=== PATIENT | female | born 1975 | race Caucasian/White ===

== ENCOUNTER 2016-10-03 15:12 | Emergency (ER) | payer BC ==
[~2016-10-03] VITALS: Ht 167.6 cm; Wt 84.1 kg
[2016-10-03 15:33] VITALS: TEMP 36.9; Ht 167.6 cm; Wt 84.1 kg
[2016-10-03 15:41] VITALS: O2SAT 96
[2016-10-03 15:42] LABS: BASO % 0.4 %; BASO ABS # 0.03 K/uL (0-0.2); COMPLETE YES; EOS % 0.7 %; IG% 0.1 %; LYMPH % 31.7 %; LYMPH ABS # 2.18 K/uL (1.2-3.4); MEAN CELL VOLUME 90.9 fL (80-100); MEAN PLATELET VOLUME 10.1 fL (7.4-10.4); NEUT % 61.1 %; PLATELET COUNT 287 K/uL (130-400); RED BLOOD COUNT 4.62 M/uL (4.2-5.4); WHITE BLOOD COUNT 6.87 K/uL (4.8-10.8)
[2016-10-03 15:48] LABS: PARTIAL THROMBOPLASTIN RATIO 1.1; PROTHROMBIN TIME (PATIENT) 10.2 SECONDS (9.0-12.0)
--- NOTE | 2016-10-03 15:59 | DIAGNOSTIC IMAGING REPORT ---
CHEST ONE VIEW PORTABLE CLINICAL HISTORY: Evaluate Fever/Sepsis COMPARISON STUDY: No previous studies for comparison. FINDINGS: The bones soft tissues and hemidiaphragms are normal. The cardiomediastinal silhouette is normal. The lungs are clear. The pulmonary vasculature is normal. IMPRESSION: Negative chest. Electronically signed by: Vinicius French M.D. 10/03/2016 3:58 PM Dictated Date/Time: 10/03/2016 3:57 PM
[2016-10-03 16:14] LABS: URINE APPEARANCE CLEAR (CLEAR); URINE BILIRUBIN NEG (NEG); URINE COLOR YELLOW; URINE NITRITE NEG (NEG); URINE SPECIFIC GRAVITY 1.011 (1.000-1.030); UROBILINOGEN NEG (NEG)
[2016-10-03 16:18] LABS: MANUAL MICROSCOPIC REQUIRED? NO; REVIEW REQ? NO
[2016-10-03 16:44] LABS: SODIUM 140 mmol/L (136-145)
[2016-10-03 16:52] LABS: AST/SGOT 13 U/L (15-37)
[2016-10-03 16:57] LABS: ALKALINE PHOSPHATASE 76 U/L (45-117); ALT/SGPT 18 U/L (12-78); BLOOD UREA NITROGEN 8 mg/dl (7-18); BUN/CREATININE RATIO 9.1 (10-20); CALCIUM 8.6 mg/dl (8.5-10.1); CARBON DIOXIDE 25 mmol/L (21-32); CHLORIDE 108 mmol/L (98-107); CKMB/CK RATIO 0.7 (0-3.0); CREATININE 0.88 mg/dl (0.60-1.20); GLUCOSE 88 mg/dl (70-99)
--- NOTE | 2016-10-03 17:28 | EMERGENCY ROOM VISIT NOTE ---
History Report prepared by Sonia: Yaritza Alonso Under the Supervision of: Dr. Marquez Mitchell D.O. First contact with patient: 15:30 Stated Complaint: ANXIETY History of Present Illness The patient is a 40 year old female who presents to the Emergency Room with complaints of persistent anxiety that began one hour ago. The patient states that she was at work when she started feeling shaky and near syncopal. She states that her whole body went numb, but noticed a burning pressure in her heart. The patient states that she checked her pulse and she was tachycardic and additionally notes that her blood pressure was hypertensive. She states that this happens from time to time. The patient reports a history of a mitral valve prolapse that was diagnosed in [place]. She states that now her head feels "funny." The patient denies any recent cold symptoms. Source of History: patient Onset: 1 hour ago Position: other (global) Quality: other (anxiety) Timing: other (persistent) Associated Symptoms: + numbness (whole body) Note: Associated Symptoms: near syncopal, shakiness, chest tightness and burning, tachycardic, hypertensive Review of Systems See HPI for pertinent positives & negatives. A total of 10 systems reviewed and were otherwise negative. Past Medical & Surgical Medical Problems: (1) Mitral valve prolapse Family History No pertinent family history stated. Social History Marital Status: Housing Status: lives with significant other Occupation Status: employed Current/Historical Medications No Active Prescriptions or Reported Meds Allergies Coded Allergies: No Known Allergies (Unverified , 10/03/16) Physical Exam Vital Signs Date Time Temp Pulse Resp B/P (MAP) Pulse Ox O2 Delivery O2 Flow Rate FiO2 10/03/16 15:41 96 Room Air 10/03/16 15:33 36.9 79 18 147/92 96 Room Air 10/03/16 15:28 79 Physical Exam CONSTITUTIONAL/VITAL SIGNS: Reviewed / noted above. GENERAL: Non-toxic in appearance. INTEGUMENTARY: Warm, dry, and [place]. HEAD: Normocephalic. EYES: without scleral icterus or trauma. ENT/OROPHARYNX: clear and moist. LYMPHADENOPATHY/NECK: Is supple without lymphadenopathy or meningismus. RESPIRATORY: Lungs clear and equal. CARDIOVASCULAR: Regular rate and rhythm. GI/ABDOMEN: Soft and nontender. No organomegaly or pulsatile mass. No rebound or guarding. Normal bowel sounds. EXTREMITIES: Warm and well perfused. BACK: No CVA tenderness. NEUROLOGICAL: Intact without focal deficits. PSYCHIATRIC: normal affect. MUSCULOSKELETAL: Normally developed with good muscle tone. Medical Decision & Procedures ER Provider Diagnostic Interpretation: X ray results and stated below per my interpretation and radiology interpretation. CHEST ONE VIEW PORTABLE CLINICAL HISTORY: Evaluate Fever/Sepsis COMPARISON STUDY: No previous studies for comparison. FINDINGS: The bones soft tissues and hemidiaphragms are normal. The cardiomediastinal silhouette is normal. The lungs are clear. The pulmonary vasculature is normal. IMPRESSION: Negative chest. Electronically signed by: Vinicius French M.D. 10/03/2016 3:58 PM Dictated Date/Time: 10/03/2016 3:57 PM Laboratory Results 10/03/16 15:25 Red Blood Count 4.62, Mean Corpuscular Volume 90.9, Mean Corpuscular Hemoglobin 31.0, Mean Corpuscular Hemoglobin Concent 34.0, Mean Platelet Volume 10.1, Neutrophils (%) (Auto) 61.1, Lymphocytes (%) (Auto) 31.7, Monocytes (%) (Auto) 6.0, Eosinophils (%) (Auto) 0.7, Basophils (%) (Auto) 0.4, Neutrophils # (Auto) 4.19, Lymphocytes # (Auto) 2.18, Monocytes # (Auto) 0.41, Eosinophils # (Auto) 0.05, Basophils # (Auto) 0.03 10/03/16 15:25 Test 10/03/16 15:25 10/03/16 15:55 White Blood Count 6.87 K/uL (4.8-10.8) Red Blood Count 4.62 M/uL (4.2-5.4) Hemoglobin 14.3 g/dL (12.0-16.0) Hematocrit 42.0 % (37-47) Mean Corpuscular Volume 90.9 fL (80-100) Mean Corpuscular Hemoglobin 31.0 pg (25-34) Mean Corpuscular Hemoglobin Concent 34.0 g/dl (32-36) Platelet Count 287 K/uL (130-400) Mean Platelet Volume 10.1 fL (7.4-10.4) Neutrophils (%) (Auto) 61.1 % Lymphocytes (%) (Auto) 31.7 % Monocytes (%) (Auto) 6.0 % Eosinophils (%) (Auto) 0.7 % Basophils (%) (Auto) 0.4 % Neutrophils # (Auto) 4.19 K/uL (1.4-6.5) Lymphocytes # (Auto) 2.18 K/uL (1.2-3.4) Monocytes # (Auto) 0.41 K/uL (0.11-0.59) Eosinophils # (Auto) 0.05 K/uL (0-0.5) Basophils # (Auto) 0.03 K/uL (0-0.2) RDW Standard Deviation 41.9 fL (36.4-46.3) RDW Coefficient of Variation 12.5 % (11.5-14.5) Immature Granulocyte % (Auto) 0.1 % Immature Granulocyte # (Auto) 0.01 K/uL (0.00-0.02) Prothrombin Time 10.2 SECONDS (9.0-12.0) Prothromb Time International Ratio 1.0 (0.9-1.1) Activated Partial Thromboplast Time 28.6 SECONDS (21.0-31.0) Partial Thromboplastin Ratio 1.1 Anion Gap 7.0 mmol/L (3-11) Est Creatinine Clear Calc Drug Dose 91.0 ml/min Estimated GFR () 93.9 Estimated GFR (Non- 81.0 BUN/Creatinine Ratio 9.1 (10-20) Calcium Level 8.6 mg/dl (8.5-10.1) Total Bilirubin 0.4 mg/dl (0.2-1) Direct Bilirubin < 0.1 mg/dl (0-0.2) Aspartate Amino Transf (AST/SGOT) 13 U/L (15-37) Alanine Aminotransferase (ALT/SGPT) 18 U/L (12-78) Alkaline Phosphatase 76 U/L (45-117) Total Creatine Kinase 82 U/L (26-192) Creatine Kinase MB 0.6 ng/ml (0.5-3.6) Creatine Kinase MB Ratio 0.7 (0-3.0) Troponin I < 0.015 ng/ml (0-0.045) Total Protein 7.7 gm/dl (6.4-8.2) Albumin 3.9 gm/dl (3.4-5.0) Lipase 97 U/L (73-393) Thyroid Stimulating Hormone (TSH) 1.030 uIu/ml (0.300-4.500) Urine Color YELLOW Urine Appearance CLEAR (CLEAR) Urine pH 5.0 (4.5-7.5) Urine Specific [place] 1.011 (1.000-1.030) Urine Protein NEG (NEG) Urine Glucose (UA) NEG (NEG) Urine Ketones NEG (NEG) Urine Occult Blood NEG (NEG) Urine Nitrite NEG (NEG) Urine Bilirubin NEG (NEG) Urine Urobilinogen NEG (NEG) Urine Leukocyte Esterase NEG (NEG) Urine Test NEG (NEG) Laboratory results as stated above per my review. ECG Indication: chest pain Rate (beats per minute): 72 Rhythm: normal sinus Findings: no acute ischemic change, no ectopy ED Course 1531: Previous medical records were reviewed. The patient was evaluated in room C4. A complete history and physical examination was performed. 1728: I reevaluated the patient and she is resting comfortably. I discussed the exam findings with her and I discussed the treatment plan. She verbalized complete understanding and agreement. She is ready to go home. Medical Decision Differentials considered include acute myocardial infarction, acute coronary syndrome, myocarditis, pericarditis, pericardial effusions /tamponade, esophageal perforation, thoracic aortic dissection, pulmonary embolism, pneumonia, pneumothorax, pancreatitis, shingles, acute cholecystitis, and perforated abdominal viscus. Patient was found to have a slightly elevated blood pressure due to circumstances. I do not believe that the patient requires hypertension monitoring. Medication Reconciliation: I attest that I have personally reviewed the patient' s current medication list. This is a 40-year-old female who presents to the ED with a chief complaint of numbness throughout her whole body and a warm sensation and pressure over her heart. She states that this occurred around 2:30 PM. She states that her heart was racing around the 117 bpm and her blood pressure was 150. The patient has no other significant complaints. She denies shortness of breath or fevers or recent illness. Vital signs are stable. She is mildly hypertensive. EKG shows a normal sinus rhythm at a rate of 72. CBC is normal, complete metabolic panel is normal, troponin is negative, TSH is normal, urine did not show infection and she is not . The patient was told the results of the test. She is felt to be stable for discharge. Impression Primary Impression: Paresthesias Additional Impression: Precordial chest pain Scribe Attestation The scribe's documentation has been prepared under my direction and personally reviewed by me in its entirety. I confirm that the note above accurately reflects all work, treatment, procedures, and medical decision making performed by me. Departure Information Dispostion Home / Self-Care Prescriptions No Active Prescriptions or Reported Meds Referrals Harman Sarmiento M.D. (PCP) Forms IMPORTANT VISIT INFORMATION Patient Instructions My [facility] Additional Instructions Follow-up with your doctor for further care and evaluation in 1-2 days if symptoms persist. Return to the emergency department for worsening or new symptoms or any concerns. You have been examined and treated today on an emergency basis only. This is not a substitute for, or an effort to provide, complete comprehensive medical care. It is impossible to recognize and treat all injuries or illnesses in a single emergency department visit. It is therefore important that you follow up closely with your doctor. Call as soon as possible for an appointment. Problem Qualifiers
[2016-10-03 17:48] VITALS: BP 129/82; PULSE 65; O2SAT 98
== END 2016-10-03 17:49 | disposition home or self-care (01) ==
LOC: EDBD 15:12 → C.EDC 15:13
DX: R20.9 Unspecified disturbances of skin sensation (principal); R07.2 Precordial pain; I34.1 Nonrheumatic mitral (valve) prolapse

== ENCOUNTER 2017-10-29 15:40 | Emergency (ER) | payer BC ==
[~2017-10-29] VITALS: Ht 170.2 cm; Wt 84.5 kg
[2017-10-29 15:40] VITALS: TEMP 36.4; Ht 170.2 cm; Wt 84.5 kg
--- NOTE | 2017-10-29 15:55 | EMERGENCY ROOM VISIT NOTE ---
History Report prepared by Sonia: Patrick Mooney Under the Supervision of: Dr. Navya Foster D.O. First contact with patient: 15:41 Chief Complaint: SYNCOPE (NEAR SYNCOPE) Stated Complaint: NEAR SYNCOPE History of Present Illness The patient is a 41 year old female who presents to the Emergency Room with complaints of constant dizziness beginning this morning. The patient states that she has been feeling weak and nauseous for the entire day today. She notes that she has been feeling so dizzy that she feels as though she is going to pass out. She reports that she feels as though she has to crawl when she walks because she feels so weak. She also complains of vomiting, abdominal pain, chills, and head pressure. She states that she has been persistently vomiting all day. The patient notes that she had an episode of sharp abdominal pain last night but she reports that she is not have any current pain. She denies any fever and changes in her bowel movements/urine. She reports that she had an entire bag of salted sunflower seeds and a few slices of [place] cream pie last night for dinner. The patient states that she has had similar symptoms in the past that she believes might be caused by her gallbladder. Per EMS, the patient' s blood pressure was in the 160s en route to the emergency department today. EMS notes that the patient received four Zofran en route to the emergency department. Source of History: patient Onset: this morning Position: head Quality: other (dizziness) Timing: constant Associated Symptoms: + chills, + nausea, + vomiting, + abdominal pain, + weakness, No fevers Note: The patient also complains of head pressure. She denies any changes in her bowel movements/urine. Review of Systems See HPI for pertinent positives & negatives. A total of 10 systems reviewed and were otherwise negative. Past Medical & Surgical Medical Problems: (1) Mitral valve prolapse Family History No pertinent family history stated. Social History Smoking Status: Never Smoker Marital Status: Housing Status: lives with family Occupation Status: employed Current/Historical Medications Scheduled Aspirin (Aspirin), 650 MG PO DAILY Charcoal (Charcoal), 5 TAB PO ONCE Allergies Coded Allergies: No Known Allergies (Unverified , 10/29/17) Physical Exam Vital Signs Date Time Temp Pulse Resp B/P (MAP) Pulse Ox O2 Delivery O2 Flow Rate FiO2 10/29/17 20:23 72 18 121/79 98 10/29/17 19:28 82 17 138/85 99 Room Air 10/29/17 17:30 78 18 119/83 98 Room Air 10/29/17 15:48 73 10/29/17 15:40 36.4 74 20 143/100 96 Room Air Physical Exam GENERAL: alert, well appearing, well nourished, no distress, non-toxic EYE EXAM: normal conjunctiva, PERRL and EOM's grossly intact OROPHARYNX: no exudate, no erythema, lips, buccal mucosa, and tongue normal and mucous membranes are moist NECK: supple, no nuchal rigidity, no adenopathy, non-tender LUNGS: Clear to auscultation. Normal chest wall mechanics HEART: no murmurs, S1 normal and S2 normal ABDOMEN: abdomen soft, non-tender, normo-active bowel sounds, no masses, no rebound or guarding. No reproducible abdominal pain. BACK: Back is symmetrical on inspection and there is no deformity, no midline tenderness, no CVA tenderness. SKIN: no rashes and no bruising UPPER EXTREMITIES: upper extremities are grossly normal. LOWER EXTREMITIES: No pitting edema. NEURO EXAM: Normal sensorium, cranial nerves II-XII grossly intact, normal speech, no gross weakness of arms, no gross weakness of legs. Medical Decision & Procedures ER Provider Diagnostic Interpretation: Radiology results have been interpreted by the radiologist and reviewed by me. GALLBLADDER-ABD LIMITED FINDINGS: Visualized pancreas appears unremarkable. The liver is within normal limits without focal mass or intrahepatic biliary ductal dilation. Gallbladder is within normal limits without wall thickening, shadowing cholelithiasis or pericholecystic fluid. Common bile duct is normal, 3 mm. 4 mm and shadowing echogenicity of the interpolar right kidney is noted. No right-sided hydronephrosis or shadowing calculi. IMPRESSION: 1. No cholelithiasis or sonographic evidence of acute cholecystitis. 2. No biliary ductal dilation. 3. 4 mm echogenic lesion of the interpolar right kidney may reflect an angiomyolipoma The above report was generated using voice recognition software. It may contain grammatical, syntax or spelling errors. Electronically signed by: Jeffrey Scott M.D. 10/29/2017 5:42 PM Dictated Date/Time: 10/29/2017 5:19 PM ABDOMEN 2VIEW W/PA CHEST RTN FINDINGS: Cardiomediastinal and hilar silhouettes are within normal limits. No pneumothorax, pleural effusion, focal airspace consolidation or overt pulmonary edema. The bones of the chest appear grossly intact. No pneumatosis or pneumoperitoneum. Bowel gas pattern is nonobstructive. No urolith or organomegaly. Phleboliths of the pelvis. Mild to moderate formed stool about the right hemicolon. IMPRESSION: 1. No acute processes of the chest. 2. Nonobstructive bowel gas pattern without pneumoperitoneum. The above report was generated using voice recognition software. It may contain grammatical, syntax or spelling errors. Electronically signed by: Jeffrey Scott M.D. 10/29/2017 5:56 PM Dictated Date/Time: 10/29/2017 5:54 PM Laboratory Results 10/29/17 15:40 Red Blood Count 4.75, Mean Corpuscular Volume 91.4, Mean Corpuscular Hemoglobin 30.7, Mean Corpuscular Hemoglobin Concent 33.6, Mean Platelet Volume 10.9, Neutrophils (%) (Auto) 82.9, Lymphocytes (%) (Auto) 12.1, Monocytes (%) (Auto) 4.3, Eosinophils (%) (Auto) 0.2, Basophils (%) (Auto) 0.3, Neutrophils # (Auto) 9.61, Lymphocytes # (Auto) 1.40, Monocytes # (Auto) 0.50, Eosinophils # (Auto) 0.02, Basophils # (Auto) 0.03 10/29/17 15:40 Test 10/29/17 15:40 10/29/17 16:45 White Blood Count 11.58 K/uL (4.8-10.8) Red Blood Count 4.75 M/uL (4.2-5.4) Hemoglobin 14.6 g/dL (12.0-16.0) Hematocrit 43.4 % (37-47) Mean Corpuscular Volume 91.4 fL (80-100) Mean Corpuscular Hemoglobin 30.7 pg (25-34) Mean Corpuscular Hemoglobin Concent 33.6 g/dl (32-36) Platelet Count 277 K/uL (130-400) Mean Platelet Volume 10.9 fL (7.4-10.4) Neutrophils (%) (Auto) 82.9 % Lymphocytes (%) (Auto) 12.1 % Monocytes (%) (Auto) 4.3 % Eosinophils (%) (Auto) 0.2 % Basophils (%) (Auto) 0.3 % Neutrophils # (Auto) 9.61 K/uL (1.4-6.5) Lymphocytes # (Auto) 1.40 K/uL (1.2-3.4) Monocytes # (Auto) 0.50 K/uL (0.11-0.59) Eosinophils # (Auto) 0.02 K/uL (0-0.5) Basophils # (Auto) 0.03 K/uL (0-0.2) RDW Standard Deviation 41.6 fL (36.4-46.3) RDW Coefficient of Variation 12.4 % (11.5-14.5) Immature Granulocyte % (Auto) 0.2 % Immature Granulocyte # (Auto) 0.02 K/uL (0.00-0.02) Anion Gap 7.0 mmol/L (3-11) Est Creatinine Clear Calc Drug Dose 96.5 ml/min Estimated GFR () 98.7 Estimated GFR (Non- 85.1 BUN/Creatinine Ratio 10.8 (10-20) Calcium Level 8.3 mg/dl (8.5-10.1) Total Bilirubin 0.4 mg/dl (0.2-1) Aspartate Amino Transf (AST/SGOT) 16 U/L (15-37) Alanine Aminotransferase (ALT/SGPT) 19 U/L (12-78) Alkaline Phosphatase 78 U/L (45-117) Troponin I < 0.015 ng/ml (0-0.045) Total Protein 8.5 gm/dl (6.4-8.2) Albumin 4.3 gm/dl (3.4-5.0) Globulin 4.2 gm/dl (2.5-4.0) Albumin/Globulin Ratio 1.0 (0.9-2) Lipase 99 U/L (73-393) Urine Color YELLOW Urine Appearance CLEAR (CLEAR) Urine pH 7.5 (4.5-7.5) Urine Specific [place] 1.010 (1.000-1.030) Urine Protein NEG (NEG) Urine Glucose (UA) NEG (NEG) Urine Ketones NEG (NEG) Urine Occult Blood NEG (NEG) Urine Nitrite NEG (NEG) Urine Bilirubin NEG (NEG) Urine Urobilinogen NEG (NEG) Urine Leukocyte Esterase NEG (NEG) Laboratory results per my review. Medications Administered Medications (Trade) Dose Ordered Sig/Giacomo Route Start Time Stop Time Status Last Admin Dose Admin Sodium Chloride 1,000 ml @ 999 mls/hr Q1H1M STAT IV 10/29/17 16:19 10/29/17 17:19 DC 10/29/17 16:35 999 MLS/HR Famotidine (Pepcid 20mg Iv Push) 20 mg ONE STAT IV 10/29/17 16:19 10/29/17 16:22 DC 10/29/17 16:36 20 MG Ondansetron HCl (Zofran Inj) 4 mg NOW STAT IV 10/29/17 18:45 10/29/17 18:46 DC 10/29/17 18:57 4 MG Ketorolac Tromethamine (Toradol Inj) 30 mg NOW STAT IV 10/29/17 18:45 10/29/17 18:46 DC 10/29/17 18:57 30 MG Ondansetron HCl (ZOFRAN ODT 4MG Home Pack) 1 homepack UD ONCE PO 10/29/17 20:15 10/29/17 20:16 DC 10/29/17 20:23 1 HOMEPACK ECG Per My Interpretation Indication: weakness Rate (beats per minute): 63 Rhythm: sinus rhythm Findings: no acute ischemic change, no ectopy, other (Normal axis, normal intervals) ED Course 1542: The patient was evaluated in room A12. A complete history and physical exam was performed. 161: Famotidine 20mg IV, Sodium Chloride 1000 ml @ 999 mls/hr IV 184: I reevaluated and updated the patient. She is feeling better but states that she is mildly nauseous again. 1844: Toradol Inj 30m IV, Zofran Inj 4mg IV 1936: Upon reevaluation, the patient is feeling better. She states that she is no longer nauseous and she notes that she does not have a headache. I discussed the findings and the treatment plan with the patient. She verbalizes agreement and understanding. The patient was discharged home. Medical Decision Differential diagnosis: Etiologies such as gastroenteritis, food borne illness, infections, appendicitis , diverticulitis, inflammatory bowel disease, obstruction, GI bleed, biliary pathology, as well as others were entertained. Patient here improved following IV fluids and medications. Likely patient's near syncope due to dehydration and poor p.o. intake earlier. I do not suspect cardiac or vascular etiology. No evidence of bacteremia/sepsis. Patient's labs and imaging reassuring. Patient hemodynamically stable throughout. Discussed with patient close follow-up with family doctor, symptoms to watch and return for, she verbalized understanding was agreeable to plan. Discussed with her this could be viral syndrome versus diet or foodborne illness. Patient ambulatory here with a steady gait, tolerating p.o. prior to discharge. Patient with no risk factors for ACS, PE, mesenteric ischemia. I do not suspect bowel obstruction, colitis, perforation, GI bleed. Medication Reconcilliation Current Medication List: was personally reviewed by me Blood Pressure Screening Patient's blood pressure: Elevated blood pressure Blood pressure disposition: Elevated BP felt to be situational Impression Primary Impression: Nausea & vomiting Additional Impressions: Weakness Near syncope Scribe Attestation The scribe's documentation has been prepared under my direction and personally reviewed by me in its entirety. I confirm that the note above accurately reflects all work, treatment, procedures, and medical decision making performed by me. Departure Information Dispostion Home / Self-Care Referrals Luzma Sawyer M.D. (PCP) Forms HOME CARE DOCUMENTATION FORM, IMPORTANT VISIT INFORMATION Patient Instructions My [facility] Additional Instructions Please sip clear liquids at frequent intervals to stay well-hydrated. Please eat a light and bland diet until you are feeling better. You may use the nausea medication provided as needed. Please follow-up with your family doctor as a precaution to assure that you are back to usual state of health. If you have any recurrent nausea or vomiting, develop recurrent abdominal pain, fevers or chills, noticed diarrhea, black or bloody stools, you have any other new concerns, please return the emergency room. Problem Qualifiers Primary Impression: Nausea & vomiting Vomiting type: unspecified Vomiting Intractability: non-intractable Qualified Codes: R11.2 - Nausea with vomiting, unspecified
[2017-10-29] MEDS ORDERED: CHAR280C PO (16:18)
[2017-10-29] MEDS ORDERED: ASPECOTC PO (16:18)
[2017-10-29] MEDS ORDERED: FAMOTIDINE 20MG/5ML IV PUSH IV STA (16:19)
[2017-10-29] MEDS ORDERED: SODIUM CHLORIDE 0.9% 1000ML 1,000 ML IV STA (16:19)
[2017-10-29 16:30] LABS: BASO % 0.3 %; BASO ABS # 0.03 K/uL (0-0.2); EOS % 0.2 %; EOS ABS # 0.02 K/uL (0-0.5); HEMATOCRIT 43.4 % (37-47); HEMOGLOBIN 14.6 g/dL (12.0-16.0); IG# 0.02 K/uL (0.00-0.02); LYMPH % 12.1 %; MEAN CELL VOLUME 91.4 fL (80-100); MEAN CORPUSCULAR HEMOGLOBIN 30.7 pg (25-34); MEAN CORPUSCULAR HGB CONC 33.6 g/dl (32-36); MEAN PLATELET VOLUME 10.9 fL (7.4-10.4); MONO % 4.3 %; NEUT % 82.9 %; NEUT ABS # 9.61 K/uL (1.4-6.5); PLATELET COUNT 277 K/uL (130-400); RED CELL DISTRIBUTION WIDTH CV 12.4 % (11.5-14.5); RED CELL DISTRIBUTION WIDTH SD 41.6 fL (36.4-46.3); WHITE BLOOD COUNT 11.58 K/uL (4.8-10.8)
[2017-10-29 16:42] LABS: ALBUMIN 4.3 gm/dl (3.4-5.0); ALKALINE PHOSPHATASE 78 U/L (45-117); ALT/SGPT 19 U/L (12-78); AST/SGOT 16 U/L (15-37); BLOOD UREA NITROGEN 9 mg/dl (7-18); CALCIUM 8.3 mg/dl (8.5-10.1); CARBON DIOXIDE 23 mmol/L (21-32); CREATININE 0.84 mg/dl (0.60-1.20); GLUCOSE 98 mg/dl (70-99); LIPASE 99 U/L (73-393); POTASSIUM 3.6 mmol/L (3.5-5.1); SODIUM 135 mmol/L (136-145); TOTAL PROTEIN 8.5 gm/dl (6.4-8.2)
--- NOTE | 2017-10-29 17:44 | DIAGNOSTIC IMAGING REPORT ---
GALLBLADDER-ABD LIMITED HISTORY: 41 years-old Female epigastric pain, n/v acute epigastric abdominal pain with nausea and vomiting COMPARISON: None available TECHNIQUE: Multiple real-time sonogram images of the abdominal right upper quadrant were obtained assessing grayscale appearance and color flow FINDINGS: Visualized pancreas appears unremarkable. The liver is within normal limits without focal mass or intrahepatic biliary ductal dilation. Gallbladder is within normal limits without wall thickening, shadowing cholelithiasis or pericholecystic fluid. Common bile duct is normal, 3 mm. 4 mm and shadowing echogenicity of the interpolar right kidney is noted. No right-sided hydronephrosis or shadowing calculi. IMPRESSION: 1. No cholelithiasis or sonographic evidence of acute cholecystitis. 2. No biliary ductal dilation. 3. 4 mm echogenic lesion of the interpolar right kidney may reflect an angiomyolipoma The above report was generated using voice recognition software. It may contain grammatical, syntax or spelling errors. Electronically signed by: Jeffrey Scott M.D. 10/29/2017 5:42 PM Dictated Date/Time: 10/29/2017 5:19 PM
--- NOTE | 2017-10-29 17:57 | DIAGNOSTIC IMAGING REPORT ---
ABDOMEN 2VIEW W/PA CHEST RTN HISTORY: 41 years-old Female nausea/vomiting acute nausea and vomiting COMPARISON: Chest radiograph 10/03/2016 TECHNIQUE: PA view of the chest with erect and supine views of the abdomen FINDINGS: Cardiomediastinal and hilar silhouettes are within normal limits. No pneumothorax, pleural effusion, focal airspace consolidation or overt pulmonary edema. The bones of the chest appear grossly intact. No pneumatosis or pneumoperitoneum. Bowel gas pattern is nonobstructive. No urolith or organomegaly. Phleboliths of the pelvis. Mild to moderate formed stool about the right hemicolon. IMPRESSION: 1. No acute processes of the chest. 2. Nonobstructive bowel gas pattern without pneumoperitoneum. The above report was generated using voice recognition software. It may contain grammatical, syntax or spelling errors. Electronically signed by: Jeffrey Scott M.D. 10/29/2017 5:56 PM Dictated Date/Time: 10/29/2017 5:54 PM
[2017-10-29] MEDS ORDERED: ONDANSETRON INJ 2 MG/ML 2 ML VIAL IV STA (18:45)
[2017-10-29] MEDS ORDERED: KETOROLAC TROMETHAMINE 30 MG/ML VIAL IV STA (18:45)
[2017-10-29] MEDS ORDERED: ONDANSETRON HOME PACK 4MG OD TAB PO ONE (20:15)
[2017-10-29 20:23] VITALS: BP 121/79; PULSE 72; O2SAT 98
== END 2017-10-29 20:25 | disposition home or self-care (01) ==
LOC: EDBD 15:40 → C.EDA 15:42
DX: R11.2 Nausea with vomiting, unspecified (principal); R53.1 Weakness; R55 Syncope and collapse; I34.1 Nonrheumatic mitral (valve) prolapse; Z79.82 Long term (current) use of aspirin; Z79.899 Other long term (current) drug therapy